=== PATIENT | female | born 1975 | race Caucasian/White ===

== ENCOUNTER 2024-04-03 12:53 | Emergency (ER) | payer SELFPAY ==
[2024-04-03 13:27] LABS: APPEARANCE,URINE CLOUDY (CLEAR); BILIRUBIN,URINE NEGATIVE (NEGATIVE); COLOR,URINE YELLOW (YELLOW); GLUCOSE,URINE NEGATIVE (NEGATIVE); KETONES,URINE NEGATIVE (NEGATIVE); LEUKOCYTE ESTERASE,URINE MODERATE (NEGATIVE); NITRITE,URINE NEGATIVE (NEGATIVE); OCCULT BLOOD,URINE LARGE (NEGATIVE); PROTEIN,URINE 30 mg/dL (NEGATIVE); UROBILINOGEN,URINE 0.2 EU/dL (0.2-1.0)
[2024-04-03 13:33] LABS: AMORPHOUS SEDIMENT,URINE NOT SEEN; BACTERIA,URINE MODERATE; EPITHELIAL CELLS,URINE NOT SEEN; MUCUS,URINE FEW; RBC,URINE 20-30 (0-5); WBC,URINE 50-75 (0-5)
== END 2024-04-03 14:29 | disposition home or self-care (01) ==
LOC: JP.ED 12:53
DX: N39.0 Urinary tract infection, site not specified (principal)
CPT/HCPCS: 81001; 87086; 87088; 87186; 99284